=== PATIENT | female | born 1970 | race Caucasian/White ===

== ENCOUNTER → 2018-10-12 | Outpatient (CLI) | payer OTHER, MEDICAID ==
--- NOTE | 2018-10-13 08:49 | KCIC ---
Examination: MRI of the left knee without contrast HISTORY: History of left knee pain COMPARISON: None available TECHNIQUE: Multiplanar, multisequence MR imaging of the left knee was performed without contrast. FINDINGS: The anterior cruciate ligament, posterior cruciate ligament appear intact. Medial meniscus, lateral meniscus appear intact. The medial collateral ligament is intact. Lateral collateral ligament including the fibular collateral ligament, biceps femoris tendon, popliteus tendon intact. Mild increased T2 signal identified about the popliteus tendon likely tendinosis. The extensor mechanism is intact. Small knee joint effusion is identified. There is a moderate-sized leaking popliteal cyst. The medial retinaculum, lateral retinaculum appear intact. There is increased T2 signal identified in the soft tissues about the knee joint. There is mild superficial fraying of cartilage identified in the medial, lateral, patellofemoral compartments. There is mild joint space loss identified in the medial compartment of the knee joint. IMPRESSION: 1. Moderate-sized leaking popliteal cyst. 2. Grade I chondromalacia medial, lateral, patellofemoral compartments. 3. 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 Electronically signed by: Yovani Giron MD (10/13/2018 8:45 AM) [facility]
== END | disposition home or self-care (01) ==
LOC: KCIC MRI 15:29
DX: M71.22 Synovial cyst of popliteal space [Baker], left knee (principal); M94.262 Chondromalacia, left knee
CPT/HCPCS: 73721

== ENCOUNTER → 2018-11-02 | Outpatient (CLI) | payer OTHER, MEDICAID ==
--- NOTE | 2018-11-03 15:14 | RESP ---
DATE OF SERVICE: 11/02/2018 REFERRED BY: Roma Jenkins APRN The patient's FVC was 3.04, which is 91% predicted, FEV1 2.31, which is 86% predicted. The FEV1/FVC ratio was normal. Total lung capacity was normal and residual volume was normal. Diffusion capacity was 79% predicted. IMPRESSION: 1. No significant obstructive or restrictive lung disease. 2. Normal diffusion capacity. 3. No bronchodilators given. SHANEL HARRIS MD DR: HAFSA/tony JOB#: [id number] / [id number] Roma Sepulveda APRN
== END | disposition home or self-care (01) ==
LOC: PF 08:03
PROVIDERS: ATTEND Registered Nurse
DX: R06.02 Shortness of breath (principal)
CPT/HCPCS: 94010; 94729

== ENCOUNTER → 2019-04-25 | Outpatient (CLI) | payer MEDICARE, MEDICAID ==
[~2019-04-25] MED LIST: ZOLPIDEM 5 MG TABLET. PO ONE
--- NOTE | 2019-04-27 09:09 | SLEEP ---
DATE OF STUDY: 04/25/2019 OBJECTIVE: The patient is a 48-year-old female, here for a CPAP titration study. Sleep apnea was diagnosed approximately 4 years ago and her CPAP machine was stolen. Height 5 feet 1 inch, weight 240 pounds, body mass index 45. Hopewell sleep score 19. INTERPRETATION: Sleep architecture is characterized by sleep efficiency of 96% across the 6.7 hours of recording time. Stage volumes are normal for age. Sleep onset latency is 1 minute. A total of 25 events are observed during the CPAP titration study. The patient has an apnea-hypopnea index of 2.3 on a setting of 9 cm CPAP. Periodic limb movements of sleep occur at the rate of 8 per hour, 1 per hour associated with arousal. No cardiac arrhythmias are observed. IMPRESSION: Successful CPAP titration using a Respironics DreamWear full facemask, small size, 9 cm. RECOMMENDATIONS: The patient should be established on the setting of CPAP. She should avoid sedatives and alcohol and pursue weight loss. Thank you for letting us help with the patient's care. JEISON CARPENTER MD DR: MAGNUS/tony JOB#: [id number] / [id number]
== END | disposition home or self-care (01) ==
LOC: RT 19:52
PROVIDERS: ATTEND Internal Medicine Pulmonary Disease
DX: G47.33 Obstructive sleep apnea (adult) (pediatric) (principal)
CPT/HCPCS: 95811